=== PATIENT | female | born 1980 | race Two or more races ===

== ENCOUNTER 2025-03-30 11:36 | Emergency (ER) | payer BC, SELFPAY ==
[2025-03-30 11:40] VITALS: BP 190/88; PULSE 97; RESP 16; TEMP 36.4; O2SAT 98; BMI 35.6
--- NOTE | 2025-03-30 11:42 | ED_ITS ---
HPI - General Adult General Chief complaint: Allergic Reaction Stated complaint: allergic reaction to meds Time Seen by Provider: 03/30/25 12:23 Source: patient Mode of arrival: ambulatory Limitations: no limitations History of Present Illness HPI narrative: This is a very nice patient presented to the emergency department send by primary care physician because question of Jose Parker syndrome. The patient has been in Bactrim until Friday, she states that she has pain in the mouth and tongue. There is no reported fever no eye involvement. Onset (ago): day(s) (3) Location: mouth Radiation: non-radiation Severity: mild Quality: burning Pain Consistency: constant Relieving factors: none Exacerbating factors: none Associated symptoms: denies other symptoms Treatments prior to arrival: none Related Data Previous Rx's ?Medication ?Instructions ?Recorded loratadine 10 mg tablet (Claritin) 10 mg PO DAILY #7 t abs 03/30/25 prednisone 20 mg tablet 60 mg (3 x 20 mg) PO DAILY # 12 tabs 03/30/25 Allergies Allergy/AdvReac Type Severity Reaction Status Date / Time ciprofloxacin (From CIPRO) Allergy Severe SEIZURE Unverified 02/17/20 15:43 levofloxacin (From LEVAQUIN) Allergy Severe SEIZURE Unverified 02/17/20 15:43 sulfamethoxazole (From Allergy Rash Verified 03/30/25 11:44 Bactrim) trimethoprim (From Bactrim) Allergy Rash Verified 03/30/25 11:44 Review of Systems 2 Constitutional: Constitutional: Reports no additional constitutional complaints ENT: Reports system reviewed and no additional complaints, except as documented Gastrointestinal: Gastrointestinal: Reports no additional gastrointestinal complaints PMFSH Social History Social History Smoked in Last 30 Days: No Use of substances other than those prescribed or required for medical reasons: Yes Substance Use Type: Marijuana Advance Directives: No Advance Directives Information Provided: Yes Patient : No Physical Exam ED Exam Exam: Team saw no acute distress looks well Vital Signs: Vital Signs - 24 hr 03/30/25 11:40 03/30/25 13:34 Temperature 97.5 F 98.2 F Pulse Rate 97 98 Respiratory Rate 16 16 Blood Pressure 190/88 H 168/83 H Pulse Oximetry 98 98 Oxygen Delivery Method Room Air Room Air BMI result Body Mass Index 35.6 She has very stable vital signs she is not tachycardic she is not tachypneic Const General: cooperative, comfortable, no acute distress, well developed, alert and awake Nutritional Appearance: average body habitus Orientation/consciousness: oriented to time HENVA Head: Yes normal to inspection General nose exam: Normal external nose present Face and sinus: Yes normal facial exam Mouth: Normal oral and palatal mucosa present and other (I really do not see any lesion in the mouth) Throat: Yes posterior oropharynx normal Eyes Other: I do not see any lesion in the ice no redness Eyelids: Yes eyelids normal Conjunctivae: conjunctivae normal Neck Neck: Yes normal visual inspection Chest Chest palpation & inspection: normal inspection of the chest Resp Effort & Inspection: normal respiratory effort Cardio Jugular venous distension: no JVD Palpation: normal PMI Rate: regular rate GI Inspection: Yes normal to inspection Palpation (GI): Soft to palpation Percussion: Yes normal to percussion Auscultation: normal bowel sounds Skin Other: I really do not see any rash Rashes: no rashes Neuro General: oriented to time Cranial nerves: Yes CN's II-XII intact bilaterally Cognition (Neuro): normal cognition Course Course Course Narrative: 44 yo F here for evaluation of possible SJS from bactrim. She was taking the antibiotic prophylactically after an urodynamic study. PCP sent her here for further evaluation. Signs of an ulcer in upper gum on the right. Dark spot on bilateral palm of hand. No signs off nikolsky signs. Last dose of Bactrim on Friday. Getting worst. Rapid medical screening exam was performed. Patient stable at time of evaluation. Elis Haas, DO 03/30/25 1143 Medications Administered Discontinued Medications Generic Name Dose Route Start Last Admin Trade Name Krisq PRN Reason Stop Dose Admin Loratadine 10 mg 03/30/25 12:41 03/30/25 13:03 Loratadine 10 Mg Tablet PO 03/30/25 12:42 10 mg ONCE ONE Administration Prednisone 60 mg 03/30/25 12:41 03/30/25 13:04 Prednisone 20 Mg Tablet PO 03/30/25 12:42 60 mg ONCE ONE Administration Medical Decision Making Medical Decision Making [facility] Narrative: Patient was sent by the PCP as a possible C with Parker I disagree with the assessment I do not think we need to do any blood work I think she can be discharged home I do not think we need to do any labs she is not tachycardic she has no fever. I will discharge her home on prednisone and Claritin this is a safe discharge the bathroom was stopped on Friday Differential Diagnosis Differential Diagnoses: The differential diagnosis associated with the presentation includes Possible allergic reaction/medication intolerance Admission/Observation Consideration of admission/observation: Escalation of care including admission/observation considered Discharge Plan Discharge Clinical Impression: Adverse reaction to drug Patient Disposition: Home, Self-Care Instructions: General Allergic Reaction (ED) Additional Instructions: We do not think you have Jones Parker syndrome, take prednisone and Claritin as directed, you already stopped Bactrim on Friday (5 days ago) in the fusion do not take Bactrim Prescriptions: New prednisone 20 mg tablet 60 mg PO DAILY Qty: 12 0RF loratadine [Claritin] 10 mg tablet 10 mg PO DAILY Qty: 7 0RF Stand Alone Forms: Work/School Release Interventions: ED Discharge Assessment Last Done: 03/30/25 13:34 Discharge Date/Time: 03/30/25 13:34 Print Language: Portuguese
--- NOTE | 2025-03-30 13:05 | PC.NURSE ---
patient a&ox3, vss, rr equal/non labored, lungs clear, denies difficulty breathing/swallowing, pt medicated per order, call portillo within reach, plan of care ongoing
[2025-03-30 13:34] VITALS: BP 168/83; PULSE 98; RESP 16; TEMP 36.8; O2SAT 98
--- OUTSIDE RECORDS SUMMARY | 2025-03-30 15:40 | XMS_ITS | Encounter Summary ---
Author Organization [facility] Address [address] [place] [address] Care Team Providers Care Landscape Crew Member Name Role Phone Boo Garcia MD Primary Care Provider Encounter Details Date Type Department Care Team (Late st Contact Info) Description 12/29/2024 Lab Requisition [facility] - Main Lab [address] [facility] [place] [address] Krys Almanza PA [address] [place] [address] Urinary tract infection, site not specified; Dysuria Social History Tobacco Use Types Packs/Day Years Used Date Smoking Tobacco: Never Assessed Comments Unknown Sex and Gender Information Value Date Recorded Sex Assigned at Not on file Legal Sex Female 1:49 PM EDT Gender Identity Not on file Sexual Orientation Not on file documented as of this encounter Plan of Treatment Not on file documented as of this encounter Procedures Procedure Name Priority Date/Time Associated Diagnosis Comments CULTURE URINE Routine 12/29/2024 1:53 PM EDT Urinary tract infection, site not specified Dysuria documented in this encounter Results * Culture urine (12/29/2024 1:53 PM EDT) Culture, Urine <10,000 CFU/mL gram negative bacilli, insignificant count, no further workup 12/30/2024 11:21 AM EDT [facility] Urine Urine specimen obtained by clean catch procedure / Unknown Non-blood Collection / Unknown 12/29/2024 1:53 PM EDT 12/29/2024 1:53 PM EDT us K[facility] MICROBIOLOGY - GENERAL ORD ERABLES Final Result [facility] [address] [place] [address], documented in this encounter Visit Diagnoses Diagnosis Urinary tract infection, site not specified Dysuria documented in this encounter Care Teams Landscape Crew Member Relationship Specialty Start Date End Date Boo Garcia MD [address] [place] [address] Dr Welch [address] [place] [phone] PCP - General Gynecology 12/29/24 documented as of this encounter
--- OUTSIDE RECORDS SUMMARY | 2025-03-30 15:40 | XMS_ITS | Clinical Summary ---
Author Organization [address] Address [address] [place] [address] Phone Care Team Providers Care Trimmer Press Clippings Name Role Phone Boo Garcia MD Primary Care Provider [phone] Encounters Date Type Department Care Team Description 12/29/2024 Lab Requisition [facility] - Main Lab [address] [facility] [place] [address] Krys Almanza PA Urinary tract infection, site not specified; Dysuria from Last 3 Months Social History Tobacco Use Types Packs/Day Years Used Date Smoking Tobacco: Never Assessed Comments Unknown Sex and Gender Information Value Date Recorded Sex Assigned at Not on file Legal Sex Female 1:49 PM EDT Gender Identity Not on file Sexual Orientation Not on file Plan of Treatment Health Maintenance Due Date Last Done Comments Breast Cancer Screening 1978 Colorectal Cancer Screening: Colonoscopy 1978 DTaP,Tdap,and Td Vaccines (1 - Tdap) 1997 Hepatitis B Vaccines (1 of 3 - 19+ 3-dose series) 1997 Cervical Cancer Screening: P ap Smear 1999 Depression Screening 06/02/2024 HIV Screening 12/30/2024 Hepatitis C Screening 12/30/2024 Social Influencers of Health Screening 12/30/2024 COVID-19 Vaccine ( - 2023-2 5 season) 2025 Influenza Vaccine (#1) 2025 RSV Immunization Adult Patie nts (1 - 1-dose 75+ series) 2053 HIB Vaccines Aged Out No longer eligi ble based on patient's age to complete this topic HPV Vaccines Aged Out No longer eligi ble based on patient's age to complete this topic Hepatitis A Vaccines Aged Out No long er eligible based on patient's age to complete this topic IPV Vaccines Aged Out No longer eligi ble based on patient's age to complete this topic MMR Vaccines Aged Out No longer eligi ble based on patient's age to complete this topic Meningococcal ACWY Vaccine Aged Out N o longer eligible based on patient's age to complete this topic Meningococcal B Vaccine Aged Out No l onger eligible based on patient's age to complete this topic Pneumococcal Vaccine: Pediat rics (0 to 5 Years) and At-Risk Patients (6 to 49 Years) Aged Out No longer eligible b ased on patient's age to complete this topic RSV Immunization Patients Un susana 20 months Aged Out No longer eligible b ased on patient's age to complete this topic Varicella Vaccines Aged Out No longer eligible based on patient's age to complete this topic Procedures Procedure Name Priority Date/Time Associated Diagnosis Comments CULTURE URINE Routine 12/29/2024 1:53 PM EDT Urinary tract infection, site not specified Dysuria from Last 3 Months Results * Culture urine (12/29/2024 1:53 PM EDT) Culture, Urine <10,000 CFU/mL gram negative bacilli, insignificant count, no further workup 12/30/2024 11:21 AM EDT [facility] Urine Urine specimen obtained by clean catch procedure / Unknown Non-blood Collection / Unknown 12/29/2024 1:53 PM EDT 12/29/2024 1:53 PM EDT us K[facility] MICROBIOLOGY - GENERAL ORD ERABLES Final Result [facility] [address] [place] [address], from Last 3 Months Insurance [facility] [address] Care Teams Trimmer Press Clippings Relationship Specialty Start Date End Date Boo Garcia MD [address] [place] [address] [place] [phone] PCP - General Gynecology 12/29/24
--- OUTSIDE RECORDS SUMMARY | 2025-03-30 15:40 | XMS_ITS | Clinical Summary ---
Author Organization [facility] Address [address] [facility] [address] [place] [address] Phone Care Team Providers Care Pharmacy Tech Name Role Phone Jeremiah Busby MD Unavailable Ajit Cameron MD Primary Care Provider [phone] Medications topiramate (TOPAMAX) 100 MG tablet Take 1 tablet by mouth 2 (two) times a day. 10/04/2022 Active LORazepam (ATIVAN) 0.5 MG tablet Take 0.5 mg by mouth. 10/04/2021 Active levETIRAcetam (KEPPRA XR) 500 mg 24 hr tablet TAKE 8 TABLETS DAILY BY MOUTH 10/04/2022 Active Active Problems No known active problems Social History Tobacco Use Types Packs/Day Years Used Date Smoking Tobacco: Never Assessed Education Answer Date Recorded Are you interested in more education? Not on shruthi e 10/18/2022 Are you concerned about learning? Not on file 10/18/2022 No 10/18/2022 No 10/18/2022 Digital Access Answer Date Recorded No 10/28/2022 No 10/28/2022 Reliable internet access at home? Not on file 10/28/2022 Device with a working camera? Not on file Comments Unknown Sex and Gender Information Value Date Recorded Sex Assigned at Not on file Legal Sex Female 9:24 PM EDT Gender Identity Not on file Sexual Orientation Not on file Last Filed Vital Signs Vital Sign Reading Time Taken Comments Blood Pressure 104/72 06/22/2014 8:43 AM EST Pulse 64 06/22/2014 8:43 AM EST Temperature 36.2 C (97.1 F) 06/22/2014 8:43 AM EST Respiratory Rate 16 06/22/2014 8:43 AM EST Oxygen Saturation - - Inhaled Oxygen Concentration - - Weight 81.6 kg (180 lb) 06/22/2014 8:43 AM EST Height 157.5 cm (5' 2 ) 06/22/2014 8:43 AM EST Body Mass Index 32.92 06/22/2014 8:43 AM EST Plan of Treatment Health Maintenance Due Date Last Done Comments LIPID PANEL 1978 DEPRESSION SCREENING 1990 SMOKING Hx and SMOKELESS TOB ACCO SCREENING 1991 HEPATITIS C SCREENING 1996 HIV ONE-TIME SCREENING (18-6 5 YEARS) 1996 PAP SMEAR 1999 MAMMOGRAM 2018 Adult Td,Tdap Booster 07/08/2023 07/08/2013 COLOGUARD 2023 COLONOSCOPY 2023 COLORECTAL CANCER SCREENING 2023 FIT TEST 2023 FOBT 2023 SIGMOIDOSCOPY 2023 VIRTUAL COLONOSCOPY 2023 INFLUENZA VACCINE (#1) 2024 COVID-19 VACCINE ( - 2024-2 6 season) 2025 HEPATITIS A VACCINES Aged Out No long er eligible based on patient's age to complete this topic HIB VACCINES Aged Out No longer eligi ble based on patient's age to complete this topic MENINGOCOCCAL VACCINES (ACWY) Aged Out No longer eligible based on patient's age to complete this topic MENINGOCOCCAL VACCINES (B) Aged Out N o longer eligible based on patient's age to complete this topic PNEUMOCOCCAL VACCINES (0-49 years) Aged Out No longer eligible based on patient's age to complete this topic Medical Devices Not on file Insurance [facility] Care Teams Pharmacy Tech Relationship Specialty Start Date End Date Ajit Cameron MD [address] [place] [address] [address] [place] [address] PCP - General Internal Medicine 10/18/22 Jeremiah Busby MD [address] [place] [phone] Historical LMR Provider 03/18/17 Additional Source Comments The information contained in this document represents components of the legal health record. It is not the complete legal health record.[facility]
== END 2025-03-30 13:34 | disposition home or self-care (01) ==
PROVIDERS: Emergency Provider Emergency Medicine; PCP Student in an Organized Health Care Education/Training Program
DX: K06.8 Other specified disorders of gingiva and edentulous alveolar ridge (principal); T36.8X5A Adverse effect of other systemic antibiotics, initial encounter; Y92.9 Unspecified place or not applicable
CPT/HCPCS: 99283; 99284